=== PATIENT | male | born 1990 | race Two or more races ===

== ENCOUNTER 2021-09-22 10:55 | Inpatient (IN) | payer MEDICAID, OTHER ==
[~2021-09-22] VITALS: Ht 170.2 cm; Wt 63.5 kg
[2021-09-22] MEDS ORDERED: SODIUM CHLORIDE 0.9% 1,000 ML IVB ONE (11:15)
[2021-09-22] MEDS: SODIUM CHLORIDE 0.9% 1,000 ML IV ONE ×2 (11:30→13:19)
[2021-09-22 11:57] LABS: Basophils # (auto) 0 10 ^3/uL (0-0.2); Basophils % (auto) 0.1 % (0.0-2.0); Eosinophils # (auto) 0.1 10 ^3/uL (0-0.8); Eosinophils % (auto) 0.5 % (0.0-7.0); Hematocrit 48.9 % (41.0-53.0); Hemoglobin 16.2 g/dL (13.5-17.5); Lymphocytes # (auto) 0.4 10 ^3/uL (0.4-5.4); Lymphocytes % (auto) 3.2 % (10.0-50.0); Mean Corpuscular Hgb Conc. 33.1 g/dL (32.0-36.0); Mean Corpuscular Volume 93.7 fL (80.0-100.0); Monocytes # (auto) 1.2 10 ^3/uL (0-1.3); Monocytes % (auto) 9.4 % (0.0-12.0); Neutrophils # (auto) 10.8 10 ^3/uL (1.6-8.6); Neutrophils % (auto) 86.8 % (37.0-80.0); Nucleated Red Blood Cells % 0.3 %; Red Blood Cells 5.22 10^6/uL (4.5-5.90); Red Cell Distribution Width 14.3 % (11.8-14.3); White Blood Cell 12.4 10^3/uL (4.4-10.8)
[2021-09-22] MEDS ORDERED: ONDANSETRON HCL 4 MG/2 ML VIAL IV ONE ×2 (12:00→13:00)
[2021-09-22 12:03] LABS: Albumin 3.9 g/dL (3.4-5.0); BUN/Creatinine Ratio 8.4; Calcium 8.3 mg/dL (8.5-10.1); Potassium 4.3 mmol/L (3.5-5.1)
[2021-09-22 12:11] LABS: Bilirubin, Total 0.3 mg/dL (0.2-1.0); Total Protein 7.8 g/dL (6.4-8.2)
[2021-09-22 12:37] LABS: Lactic Acid w/Reflex 4.6 mmol/L (0.4-2.0)
[2021-09-22] MEDS ORDERED: DexAMETHasone SOD PHOS 4 MG/1ML SDV INJ IV ONE (13:00)
[2021-09-22] MEDS ORDERED: AZITHROMYCIN 500MG/ 250ML 250 ML IV ONE ×3 (13:00→21:06)
[2021-09-22] MEDS ORDERED: VANCOMYCIN 1GM/250ML 250 ML IV ONE (13:00)
[2021-09-22] MEDS ORDERED: NOREPINEPHRINE 8 MG/250ML KIT 250 ML IV SCH (13:15)
[2021-09-22] MEDS ORDERED: REMDESIVIR PER PHARMACY 0 ML IV SCH (13:30)
[2021-09-22] MEDS ORDERED: cefTRIAXone 1GM/50ML D5W 50 ML IV ONE (13:30)
[2021-09-22 13:31] LABS: CRP High Sensitivity 0.34 mg/dL (< 0.3)
[2021-09-22] MEDS ORDERED: SODIUM CHLORIDE 0.9% 500 ML IV ONE (13:45)
[2021-09-22 14:30] VITALS: BP 63/39
[2021-09-22] MEDS: AZITHROMYCIN 500MG/ 250ML 250 ML IV SCH ×2 (14:46→21:15)
[2021-09-22 14:52] LABS: INR 1.12 (0.9-1.15)
[2021-09-22] MEDS ORDERED: SODIUM CHLORIDE 0.9% 1,000 ML IV ONE (15:30)
[2021-09-22 15:32] LABS: Bilirubin, Direct 0.2 mg/dL (0-0.2)
[2021-09-22 15:34] LABS: Bilirubin, Total 0.3 mg/dL (0.2-1.0)
[2021-09-22] MEDS ORDERED: FUROSEMIDE 100 MG/10ML VIAL IV ONE (15:45)
[2021-09-22] MEDS ORDERED: SODIUM BICARBONATE 8.4 % INJ 50ML VIAL IV ONE (15:45)
[2021-09-22] MEDS ORDERED: PIPERACILLIN-TAZOB 2.25GM 50 ML IV ONE (16:00)
[2021-09-22] MEDS ORDERED: FOLIC ACID 1 MG in D5W 5% 50 ML INJ ONE (16:00)
[2021-09-22] MEDS ORDERED: PANTOPRAZOLE 40 MG/10 ML VIAL INJ IV ONE (16:00)
[2021-09-22] MEDS ORDERED: NITROGLYCERIN 0.4 MG SL TAB SL PRN (16:00)
[2021-09-22] MEDS ORDERED: MORPHINE SULFATE INJ 2 MG/ml SYRG IV PRN (16:00)
[2021-09-22] MEDS ORDERED: THIAMINE 100mg/ml INJ (200mg/2ml VIAL) IV ONE (16:00)
[2021-09-22 16:48] LABS: Urine Bacteria NONE SEEN /hpf (None Seen); Urine Blood 3+ /uL (Negative); Urine Budding Yeast MODERATE /hpf (None Seen); Urine Mucus FEW (None Seen); Urine Specific Gravity 1.025 (1.001-1.035); Urine WBC 381 /hpf (0 - 3)
[2021-09-22 16:57] LABS: Alcohol, Urine < 3.0 mg/dL (0-10); Amphetamine Screen, Urine NEGATIVE (NEGATIVE); Barbiturate Scree,Urine NEGATIVE (NEGATIVE); Benzodiazephine Screen, Urine NEGATIVE (NEGATIVE); Cannabinoid Screen, Urine POSITIVE (NEGATIVE); Cocaine Screen, Urine POSITIVE (NEGATIVE); Opiate Scree,Urine NEGATIVE (NEGATIVE); Phencyclidine Screen, Urine NEGATIVE (NEGATIVE)
[2021-09-22] MEDS: PHENYLEPHRINE IV 250 ML IV SCH (17:37)
[2021-09-22 17:50] LABS: Acetaminophen < 2.0 ug/mL (10-30); Salicylate 2.5 mg/dL (2.8-20.0)
[2021-09-22] MEDS ORDERED: LIDOCAINE 1% (LOCAL ANESTH.) PF 5ml SDV ID ONE (18:45)
[2021-09-22] MEDS: NOREPINEPHRINE 8 MG/250ML KIT 250 ML IV SCH (19:13)
[2021-09-22] MEDS: SODIUM BICARBONATE 50ML VIAL 150 ML in D5W 5% 1,000 ML IV SCH (19:16)
[2021-09-22] MEDS: ENOXAPARIN SOD 80 MG/0.8ML SYRINGE SC SCH (21:18)
[2021-09-22] MEDS: PIPERACILLIN-TAZOB 2.25GM 50 ML IV SCH (21:54)
[2021-09-22] MEDS: SODIUM CHLOR 0.9% PF (SALINE LOCK) 10ML VIAL/SYR IV SCH (21:54)
[2021-09-23] MEDS: PHENYLEPHRINE IV 250 ML IV SCH ×3 (00:35→18:32)
[2021-09-23] MEDS: SODIUM BICARBONATE 50ML VIAL 150 ML in D5W 5% 1,000 ML IV SCH ×2 (03:15→07:24)
[2021-09-23] MEDS: PIPERACILLIN-TAZOB 2.25GM 50 ML IV SCH ×4 (04:05→22:35)
[2021-09-23 06:13] LABS: INR 1.51 (0.9-1.15); Partial Thromboplastin Time 30.9 sec (23.6-33.0)
[2021-09-23 06:44] LABS: Bilirubin, Total 0.3 mg/dL (0.2-1.0); Total Protein 4.8 g/dL (6.4-8.2)
[2021-09-23 07:40] LABS: Potassium 4.3 mmol/L (3.5-5.1)
[2021-09-23 07:42] LABS: Albumin 2.5 g/dL (3.4-5.0); BUN/Creatinine Ratio 12.1; Calcium 6.3 mg/dL (8.5-10.1)
[2021-09-23] MEDS: SODIUM CHLOR 0.9% PF (SALINE LOCK) 10ML VIAL/SYR IV SCH ×2 (10:16→22:35)
[2021-09-23] MEDS: THIAMINE 100mg/ml INJ (200mg/2ml VIAL) IV SCH (10:16)
[2021-09-23] MEDS: PANTOPRAZOLE 40 MG/10 ML VIAL INJ IV SCH (10:16)
[2021-09-23] MEDS ORDERED: DOXYCYCLINE 100 MG TAB/CAP PO ONE (10:30)
[2021-09-23] MEDS: FOLIC ACID 1 MG in D5W 5% 50 ML INJ SCH (11:32)
[2021-09-23] MEDS: ALBUTEROL SULF 2.5 MG/0.5ML(0.5%) NEB SOLN NEB SCH ×2 (12:02→18:58)
[2021-09-23] MEDS: IPRATROPIUM BROM 0.5 MG/2.5ML INH SOL NEB SCH ×2 (12:02→18:58)
[2021-09-23] MEDS: SODIUM CHLORIDE 0.9% 1,000 ML IV SCH ×2 (12:19→18:31)
[2021-09-23] MEDS: BUMETANIDE 2.5mg/10ml (0.25 mg/ml) INJ IV SCH ×2 (12:44→18:31)
[2021-09-23 12:56] LABS: Creatinine, Urine 231 mg/dL (30.0-125.0); Protein, Urine 109.8 mg/dL (0.0-11.9); Sodium Urine 14 mmol/L (40-220)
[2021-09-23 13:46] LABS: Basophils # (auto) 0 10 ^3/uL (0-0.2); Eosinophils # (auto) 0 10 ^3/uL (0-0.8); Eosinophils % (auto) 0.4 % (0.0-7.0); Hematocrit 36.3 % (41.0-53.0); Hemoglobin 12.4 g/dL (13.5-17.5); Lymphocytes # (auto) 0.4 10 ^3/uL (0.4-5.4); Mean Corpuscular Hemoglobin 31.8 pg (28.0-32.0); Mean Corpuscular Hgb Conc. 34.2 g/dL (32.0-36.0); Mean Corpuscular Volume 92.9 fL (80.0-100.0); Monocytes # (auto) 0.4 10 ^3/uL (0-1.3); Monocytes % (auto) 4.1 % (0.0-12.0); Neutrophils # (auto) 9.8 10 ^3/uL (1.6-8.6); Neutrophils % (auto) 91.5 % (37.0-80.0); Red Blood Cells 3.91 10^6/uL (4.5-5.90); Red Cell Distribution Width 14.4 % (11.8-14.3); White Blood Cell 10.7 10^3/uL (4.4-10.8)
[2021-09-23 14:02] LABS: Lactic Acid w/Reflex 2.6 mmol/L (0.4-2.0)
[2021-09-23] MEDS: NOREPINEPHRINE 8 MG/250ML KIT 250 ML IV SCH (16:15)
[2021-09-23] MEDS: ENOXAPARIN SOD 80 MG/0.8ML SYRINGE SC SCH (21:05)
[2021-09-23] MEDS: DOXYCYCLINE 100 MG TAB/CAP PO SCH (22:34)
[2021-09-24] MEDS: ALBUTEROL SULF 2.5 MG/0.5ML(0.5%) NEB SOLN NEB SCH ×5 (00:29→23:40)
[2021-09-24] MEDS: IPRATROPIUM BROM 0.5 MG/2.5ML INH SOL NEB SCH ×5 (00:29→23:40)
[2021-09-24] MEDS: PHENYLEPHRINE IV 250 ML IV SCH ×3 (01:35→18:15)
[2021-09-24] MEDS: SODIUM CHLORIDE 0.9% 1,000 ML IV SCH ×4 (01:39→23:20)
[2021-09-24] MEDS: PIPERACILLIN-TAZOB 2.25GM 50 ML IV SCH ×4 (04:03→23:21)
[2021-09-24 04:27] LABS: Basophils # (auto) 0 10 ^3/uL (0-0.2); Basophils % (auto) 0.3 % (0.0-2.0); Eosinophils # (auto) 0 10 ^3/uL (0-0.8); Eosinophils % (auto) 0.1 % (0.0-7.0); Hematocrit 35.6 % (41.0-53.0); Hemoglobin 12.2 g/dL (13.5-17.5); Lymphocytes # (auto) 0.8 10 ^3/uL (0.4-5.4); Lymphocytes % (auto) 6.2 % (10.0-50.0); Mean Corpuscular Hemoglobin 31.3 pg (28.0-32.0); Mean Corpuscular Hgb Conc. 34.2 g/dL (32.0-36.0); Mean Corpuscular Volume 91.4 fL (80.0-100.0); Monocytes # (auto) 0.6 10 ^3/uL (0-1.3); Monocytes % (auto) 5.1 % (0.0-12.0); Neutrophils # (auto) 11.2 10 ^3/uL (1.6-8.6); Neutrophils % (auto) 88.3 % (37.0-80.0); Nucleated Red Blood Cells % 0.1 %; Red Blood Cells 3.89 10^6/uL (4.5-5.90); Red Cell Distribution Width 13.7 % (11.8-14.3); White Blood Cell 12.6 10^3/uL (4.4-10.8)
[2021-09-24 04:33] LABS: Albumin 2.6 g/dL (3.4-5.0); BUN/Creatinine Ratio 10.5; Calcium 6.3 mg/dL (8.5-10.1); Potassium 3.7 mmol/L (3.5-5.1)
[2021-09-24 04:34] LABS: INR 1.24 (0.9-1.15); Partial Thromboplastin Time 32.8 sec (23.6-33.0)
[2021-09-24 04:41] LABS: Bilirubin, Total 0.4 mg/dL (0.2-1.0); Phosphorus 3.7 mg/dL (2.5-4.90)
[2021-09-24] MEDS: BUMETANIDE 2.5mg/10ml (0.25 mg/ml) INJ IV SCH ×3 (06:08→18:10)
[2021-09-24] MEDS: DOPamine 1600MCG/ML D5W 250 ML IV SCH (10:00)
[2021-09-24] MEDS: FOLIC ACID 1 MG in D5W 5% 50 ML INJ SCH (10:12)
[2021-09-24] MEDS: DOXYCYCLINE 100 MG TAB/CAP PO SCH ×2 (10:13→23:20)
[2021-09-24] MEDS: PANTOPRAZOLE 40 MG/10 ML VIAL INJ IV SCH (10:13)
[2021-09-24] MEDS: THIAMINE 100mg/ml INJ (200mg/2ml VIAL) IV SCH (10:13)
[2021-09-24] MEDS: SODIUM CHLOR 0.9% PF (SALINE LOCK) 10ML VIAL/SYR IV SCH ×2 (10:13→22:00)
[2021-09-24] MEDS: NOREPINEPHRINE 8 MG/250ML KIT 250 ML IV SCH (16:15)
[2021-09-24] MEDS: ENOXAPARIN SOD 80 MG/0.8ML SYRINGE SC SCH (23:20)
[2021-09-25] MEDS: PIPERACILLIN-TAZOB 2.25GM 50 ML IV SCH ×4 (04:43→21:39)
[2021-09-25] MEDS: ALBUTEROL SULF 2.5 MG/0.5ML(0.5%) NEB SOLN NEB SCH ×3 (05:31→18:25)
[2021-09-25] MEDS: IPRATROPIUM BROM 0.5 MG/2.5ML INH SOL NEB SCH ×3 (06:00→18:25)
[2021-09-25] MEDS: BUMETANIDE 2.5mg/10ml (0.25 mg/ml) INJ IV SCH ×2 (06:08→18:06)
[2021-09-25] MEDS: SODIUM CHLORIDE 0.9% 1,000 ML IV SCH ×3 (06:47→13:34)
[2021-09-25 07:53] LABS: Basophils # (auto) 0 10 ^3/uL (0-0.2); Basophils % (auto) 0.1 % (0.0-2.0); Eosinophils # (auto) 0 10 ^3/uL (0-0.8); Eosinophils % (auto) 0.1 % (0.0-7.0); Hematocrit 39.1 % (41.0-53.0); Hemoglobin 13.5 g/dL (13.5-17.5); Lymphocytes # (auto) 0.6 10 ^3/uL (0.4-5.4); Lymphocytes % (auto) 5.2 % (10.0-50.0); Mean Corpuscular Hemoglobin 31.5 pg (28.0-32.0); Mean Corpuscular Hgb Conc. 34.6 g/dL (32.0-36.0); Mean Corpuscular Volume 91.1 fL (80.0-100.0); Monocytes # (auto) 0.8 10 ^3/uL (0-1.3); Monocytes % (auto) 6.7 % (0.0-12.0); Neutrophils # (auto) 10.9 10 ^3/uL (1.6-8.6); Neutrophils % (auto) 87.9 % (37.0-80.0); Red Blood Cells 4.29 10^6/uL (4.5-5.90); Red Cell Distribution Width 13.5 % (11.8-14.3); White Blood Cell 12.3 10^3/uL (4.4-10.8)
[2021-09-25 08:24] LABS: Potassium 3.3 mmol/L (3.5-5.1)
[2021-09-25 08:45] LABS: Albumin 2.6 g/dL (3.4-5.0); BUN/Creatinine Ratio 11.2; Bilirubin, Total 0.8 mg/dL (0.2-1.0); Calcium 6.7 mg/dL (8.5-10.1); Magnesium 2.5 mg/dL (1.6-2.6); Phosphorus 4.1 mg/dL (2.5-4.90); Total Protein 5.6 g/dL (6.4-8.2)
[2021-09-25] MEDS: DOPamine 1600MCG/ML D5W 250 ML IV SCH (09:15)
[2021-09-25] MEDS: SODIUM CHLOR 0.9% PF (SALINE LOCK) 10ML VIAL/SYR IV SCH ×2 (10:08→21:34)
[2021-09-25] MEDS: DOXYCYCLINE 100 MG TAB/CAP PO SCH (10:08)
[2021-09-25] MEDS: PANTOPRAZOLE 40 MG/10 ML VIAL INJ IV SCH (10:08)
[2021-09-25] MEDS: THIAMINE 100mg/ml INJ (200mg/2ml VIAL) IV SCH (10:08)
[2021-09-25] MEDS: FOLIC ACID 1 MG in D5W 5% 50 ML INJ SCH (10:39)
[2021-09-25] MEDS ORDERED: POTASSIUM CHL 20MEQ/100ML 100 ML IV ONE (11:15)
[2021-09-25] MEDS ORDERED: CARVEDILOL 12.5 MG TAB PO ONE (12:00)
[2021-09-25 12:06] LABS: Hepatitis A Ab IgM Negative; Hepatitis B Core IgM Negative; Hepatitis C Antibody Negative (Negative)
[2021-09-25 12:07] LABS: Hepatitis C Antibody Negative (Negative)
[2021-09-25] MEDS: ENOXAPARIN SOD 80 MG/0.8ML SYRINGE SC SCH (21:40)
[2021-09-25] MEDS: CARVEDILOL 12.5 MG TAB PO SCH (21:41)
[2021-09-26] MEDS: IPRATROPIUM BROM 0.5 MG/2.5ML INH SOL NEB SCH ×4 (00:22→17:55)
[2021-09-26] MEDS: ALBUTEROL SULF 2.5 MG/0.5ML(0.5%) NEB SOLN NEB SCH ×4 (00:22→17:54)
[2021-09-26] MEDS: SODIUM CHLORIDE 0.9% 1,000 ML IV SCH (03:39)
[2021-09-26] MEDS: PIPERACILLIN-TAZOB 2.25GM 50 ML IV SCH ×4 (03:40→21:43)
[2021-09-26] MEDS: DOPamine 1600MCG/ML D5W 250 ML IV SCH (04:00)
[2021-09-26 06:17] LABS: Basophils # (auto) 0.1 10 ^3/uL (0-0.2); Basophils % (auto) 0.6 % (0.0-2.0); Eosinophils # (auto) 0 10 ^3/uL (0-0.8); Eosinophils % (auto) 0.3 % (0.0-7.0); Hematocrit 38.8 % (41.0-53.0); Hemoglobin 13.7 g/dL (13.5-17.5); Lymphocytes # (auto) 0.5 10 ^3/uL (0.4-5.4); Lymphocytes % (auto) 5.1 % (10.0-50.0); Mean Corpuscular Hemoglobin 31.9 pg (28.0-32.0); Mean Corpuscular Hgb Conc. 35.3 g/dL (32.0-36.0); Mean Corpuscular Volume 90.4 fL (80.0-100.0); Monocytes # (auto) 0.9 10 ^3/uL (0-1.3); Monocytes % (auto) 8.9 % (0.0-12.0); Neutrophils # (auto) 8.6 10 ^3/uL (1.6-8.6); Neutrophils % (auto) 85.1 % (37.0-80.0); Nucleated Red Blood Cells % 0.1 %; Red Cell Distribution Width 13.4 % (11.8-14.3); White Blood Cell 10.1 10^3/uL (4.4-10.8)
[2021-09-26 06:39] LABS: Albumin 2.2 g/dL (3.4-5.0); Bilirubin, Total 1.3 mg/dL (0.2-1.0); Calcium 6.7 mg/dL (8.5-10.1); Total Protein 5.1 g/dL (6.4-8.2)
[2021-09-26] MEDS: BUMETANIDE 2.5mg/10ml (0.25 mg/ml) INJ IV SCH ×2 (07:03→18:06)
[2021-09-26] MEDS ORDERED: POTASSIUM EFFERVESENT TAB 25 MEQ PO ONE (08:30)
[2021-09-26] MEDS: FOLIC ACID 1 MG in D5W 5% 50 ML INJ SCH (10:10)
[2021-09-26] MEDS: PANTOPRAZOLE 40 MG/10 ML VIAL INJ IV SCH (10:10)
[2021-09-26] MEDS: CARVEDILOL 12.5 MG TAB PO SCH ×2 (10:10→21:44)
[2021-09-26] MEDS: THIAMINE 100mg/ml INJ (200mg/2ml VIAL) IV SCH (10:10)
[2021-09-26] MEDS: SODIUM CHLOR 0.9% PF (SALINE LOCK) 10ML VIAL/SYR IV SCH ×2 (10:10→21:44)
[2021-09-26] MEDS ORDERED: POTASSIUM CHL 20MEQ/100ML 100 ML IV SCH (11:45)
[2021-09-26] MEDS ORDERED: ENOXAPARIN SOD 40 MG/0.4 ML SYRINGE SC SCH (21:00)
[2021-09-27] MEDS: ALBUTEROL SULF 2.5 MG/0.5ML(0.5%) NEB SOLN NEB SCH ×3 (00:11→11:45)
[2021-09-27] MEDS: IPRATROPIUM BROM 0.5 MG/2.5ML INH SOL NEB SCH ×3 (00:11→11:45)
[2021-09-27] MEDS: PIPERACILLIN-TAZOB 2.25GM 50 ML IV SCH ×3 (04:49→23:49)
[2021-09-27 04:58] LABS: Basophils # (auto) 0 10 ^3/uL (0-0.2); Basophils % (auto) 0.3 % (0.0-2.0); Eosinophils # (auto) 0.2 10 ^3/uL (0-0.8); Eosinophils % (auto) 1.9 % (0.0-7.0); Hematocrit 43.6 % (41.0-53.0); Hemoglobin 15.4 g/dL (13.5-17.5); Lymphocytes # (auto) 0.6 10 ^3/uL (0.4-5.4); Lymphocytes % (auto) 6.5 % (10.0-50.0); Mean Corpuscular Hemoglobin 31.6 pg (28.0-32.0); Mean Corpuscular Hgb Conc. 35.4 g/dL (32.0-36.0); Mean Corpuscular Volume 89.2 fL (80.0-100.0); Monocytes # (auto) 1.1 10 ^3/uL (0-1.3); Monocytes % (auto) 11.8 % (0.0-12.0); Neutrophils # (auto) 7.8 10 ^3/uL (1.6-8.6); Neutrophils % (auto) 79.5 % (37.0-80.0); Red Blood Cells 4.88 10^6/uL (4.5-5.90); Red Cell Distribution Width 13.6 % (11.8-14.3); White Blood Cell 9.8 10^3/uL (4.4-10.8)
[2021-09-27 05:17] LABS: Albumin 2.3 g/dL (3.4-5.0); Potassium 3.5 mmol/L (3.5-5.1)
[2021-09-27 05:19] LABS: BUN/Creatinine Ratio 13.2
[2021-09-27 05:21] LABS: Bilirubin, Total 0.8 mg/dL (0.2-1.0); Total Protein 5.6 g/dL (6.4-8.2)
[2021-09-27] MEDS: BUMETANIDE 2.5mg/10ml (0.25 mg/ml) INJ IV SCH (08:00)
[2021-09-27] MEDS: THIAMINE 100mg/ml INJ (200mg/2ml VIAL) IV SCH (11:03)
[2021-09-27] MEDS: FOLIC ACID 1 MG in D5W 5% 50 ML INJ SCH (11:03)
[2021-09-27] MEDS: SODIUM CHLOR 0.9% PF (SALINE LOCK) 10ML VIAL/SYR IV SCH ×2 (11:03→23:50)
[2021-09-27] MEDS: PANTOPRAZOLE 40 MG/10 ML VIAL INJ IV SCH (11:03)
[2021-09-27] MEDS: CARVEDILOL 12.5 MG TAB PO SCH ×2 (11:04→23:20)
[2021-09-27] MEDS ORDERED: ALBUMIN 25% 100 ML IV ONE (11:15)
[2021-09-27] MEDS ORDERED: POTASSIUM EFFERVESENT TAB 25 MEQ PO ONE (11:15)
[2021-09-27] MEDS ORDERED: PIPERACILLIN-TAZOB 2.25GM 50 ML IV SCH (18:00)
[2021-09-27 19:02] VITALS: BP 134/84
[2021-09-27 22:30] VITALS: BP 149/106
[2021-09-27] MEDS ORDERED: NITROGLYCERIN 0.4 MG SL TAB SL PRN (23:00)
[2021-09-27] MEDS ORDERED: MORPHINE SULFATE INJ 2 MG/ml SYRG IV PRN (23:00)
[2021-09-28] MEDS: IPRATROPIUM BROM 0.5 MG/2.5ML INH SOL NEB SCH ×4 (00:07→20:09)
[2021-09-28] MEDS: ALBUTEROL SULF 2.5 MG/0.5ML(0.5%) NEB SOLN NEB SCH ×4 (00:07→20:09)
[2021-09-28 05:00] VITALS: BP 129/79
[2021-09-28] MEDS: PIPERACILLIN-TAZOB 2.25GM 50 ML IV SCH ×2 (05:36→14:14)
[2021-09-28 05:54] LABS: Calcium 8.5 mg/dL (8.5-10.1); Potassium 3.2 mmol/L (3.5-5.1)
[2021-09-28 05:55] LABS: Basophils # (auto) 0 10 ^3/uL (0-0.2); Basophils % (auto) 0.1 % (0.0-2.0); Eosinophils # (auto) 0.2 10 ^3/uL (0-0.8); Eosinophils % (auto) 2.6 % (0.0-7.0); Hematocrit 38.2 % (41.0-53.0); Hemoglobin 13.2 g/dL (13.5-17.5); Lymphocytes # (auto) 0.8 10 ^3/uL (0.4-5.4); Lymphocytes % (auto) 8.4 % (10.0-50.0); Mean Corpuscular Hemoglobin 31.3 pg (28.0-32.0); Mean Corpuscular Hgb Conc. 34.6 g/dL (32.0-36.0); Mean Corpuscular Volume 90.5 fL (80.0-100.0); Monocytes # (auto) 1.2 10 ^3/uL (0-1.3); Monocytes % (auto) 12.6 % (0.0-12.0); Neutrophils % (auto) 76.3 % (37.0-80.0); Red Blood Cells 4.22 10^6/uL (4.5-5.90); Red Cell Distribution Width 13.4 % (11.8-14.3); White Blood Cell 9.2 10^3/uL (4.4-10.8)
[2021-09-28 06:00] LABS: BUN/Creatinine Ratio 14.4
[2021-09-28 09:00] VITALS: BP 137/91
[2021-09-28] MEDS: CARVEDILOL 12.5 MG TAB PO SCH ×2 (09:21→22:20)
[2021-09-28] MEDS: FOLIC ACID 1 MG TAB PO SCH (09:21)
[2021-09-28] MEDS: PANTOPRAZOLE 40 MG TAB PO SCH (09:21)
[2021-09-28] MEDS: SODIUM CHLOR 0.9% PF (SALINE LOCK) 10ML VIAL/SYR IV SCH ×2 (09:26→22:19)
[2021-09-28] MEDS: POTASSIUM CHL 20MEQ/100ML 100 ML IV SCH ×2 (09:27→11:18)
[2021-09-28] MEDS ORDERED: THIAMINE 100mg/ml INJ (200mg/2ml VIAL) IV SCH (10:00)
[2021-09-28] MEDS ORDERED: PANTOPRAZOLE 40 MG TAB PO SCH (10:00)
[2021-09-28] MEDS ORDERED: FOLIC ACID 1 MG TAB PO SCH (10:00)
[2021-09-28 13:00] VITALS: BP 147/99
[2021-09-28 17:24] VITALS: BP 140/98
[2021-09-28 20:00] VITALS: BP 137/86
[2021-09-28 22:00] VITALS: BP 137/86
[2021-09-29] MEDS: IPRATROPIUM BROM 0.5 MG/2.5ML INH SOL NEB SCH ×3 (00:07→11:55)
[2021-09-29] MEDS: ALBUTEROL SULF 2.5 MG/0.5ML(0.5%) NEB SOLN NEB SCH ×3 (00:07→11:55)
[2021-09-29 05:00] VITALS: BP 139/100
[2021-09-29 07:13] LABS: Basophils # (auto) 0 10 ^3/uL (0-0.2); Basophils % (auto) 0.3 % (0.0-2.0); Eosinophils # (auto) 0.3 10 ^3/uL (0-0.8); Eosinophils % (auto) 3.4 % (0.0-7.0); Hematocrit 35.8 % (41.0-53.0); Hemoglobin 12.5 g/dL (13.5-17.5); Lymphocytes % (auto) 10.8 % (10.0-50.0); Mean Corpuscular Hemoglobin 31.2 pg (28.0-32.0); Mean Corpuscular Hgb Conc. 34.8 g/dL (32.0-36.0); Mean Corpuscular Volume 89.6 fL (80.0-100.0); Monocytes # (auto) 1.4 10 ^3/uL (0-1.3); Monocytes % (auto) 15.2 % (0.0-12.0); Neutrophils # (auto) 6.5 10 ^3/uL (1.6-8.6); Neutrophils % (auto) 70.3 % (37.0-80.0); Red Cell Distribution Width 13.2 % (11.8-14.3); White Blood Cell 9.2 10^3/uL (4.4-10.8)
[2021-09-29 07:39] LABS: BUN/Creatinine Ratio 14.3; Calcium 8.3 mg/dL (8.5-10.1); Potassium 3.2 mmol/L (3.5-5.1)
[2021-09-29 09:00] VITALS: BP 138/98
[2021-09-29] MEDS: FOLIC ACID 1 MG TAB PO SCH (09:38)
[2021-09-29] MEDS: THIAMINE HCL 100 MG TAB PO SCH (09:38)
[2021-09-29] MEDS: PANTOPRAZOLE 40 MG TAB PO SCH (09:38)
[2021-09-29] MEDS: CARVEDILOL 12.5 MG TAB PO SCH ×2 (09:39→22:05)
[2021-09-29] MEDS: SODIUM CHLOR 0.9% PF (SALINE LOCK) 10ML VIAL/SYR IV SCH ×2 (09:41→22:06)
[2021-09-29] MEDS ORDERED: levoFLOXacin 250 MG TAB PO SCH (10:00)
[2021-09-29] MEDS ORDERED: POTASSIUM CHL 20 Meq TABLET PO ONE (12:15)
[2021-09-29 13:00] VITALS: BP 142/95
[2021-09-29] MEDS ORDERED: BUMETANIDE 2.5mg/10ml (0.25 mg/ml) INJ IV ONE (14:45)
[2021-09-29 17:00] VITALS: BP 152/100
[2021-09-29 20:55] VITALS: BP 139/96
[2021-09-30] MEDS ORDERED: ALBUTEROL SULF 2.5 MG/0.5ML(0.5%) NEB SOLN NEB PRN
[2021-09-30] MEDS ORDERED: IPRATROPIUM BROM 0.5 MG/2.5ML INH SOL NEB PRN
[2021-09-30 05:07] VITALS: BP 143/98
[2021-09-30 05:47] LABS: BUN/Creatinine Ratio 14.6; Calcium 8.1 mg/dL (8.5-10.1); Potassium 3.5 mmol/L (3.5-5.1)
[2021-09-30 09:02] VITALS: BP 146/96
[2021-09-30] MEDS: PANTOPRAZOLE 40 MG TAB PO SCH (09:18)
[2021-09-30] MEDS: CARVEDILOL 12.5 MG TAB PO SCH ×2 (09:19→21:35)
[2021-09-30] MEDS: FOLIC ACID 1 MG TAB PO SCH (09:19)
[2021-09-30] MEDS: THIAMINE HCL 100 MG TAB PO SCH (09:20)
[2021-09-30] MEDS: SODIUM CHLOR 0.9% PF (SALINE LOCK) 10ML VIAL/SYR IV SCH ×2 (09:20→22:00)
[2021-09-30] MEDS: levoFLOXacin 250 MG TAB PO SCH (11:46)
[2021-09-30 13:00] VITALS: BP 140/102
[2021-09-30 17:00] VITALS: BP 155/104
[2021-09-30] MEDS ORDERED: hydrALAZINE HCL 20 MG/ML VL IV PRN (17:45)
[2021-09-30] MEDS: LABETALOL HCL 5 MG/ML 4ML SYRINGE IV PRN (18:12)
[2021-09-30 22:00] VITALS: BP 149/105
[2021-10-01] VITALS (7 sets, daily range): BP systolic 135–150; BP diastolic 94–105
[2021-10-01] MEDS: LABETALOL HCL 5 MG/ML 4ML SYRINGE IV PRN (02:50)
[2021-10-01 07:16] LABS: BUN/Creatinine Ratio 13.4; Calcium 8.5 mg/dL (8.5-10.1); Potassium 3.9 mmol/L (3.5-5.1)
[2021-10-01] MEDS: THIAMINE HCL 100 MG TAB PO SCH (08:36)
[2021-10-01] MEDS: PANTOPRAZOLE 40 MG TAB PO SCH (08:36)
[2021-10-01] MEDS: FOLIC ACID 1 MG TAB PO SCH (08:36)
[2021-10-01] MEDS: levoFLOXacin 250 MG TAB PO SCH (08:36)
[2021-10-01] MEDS: CARVEDILOL 12.5 MG TAB PO SCH ×2 (08:37→21:42)
[2021-10-01] MEDS: SODIUM CHLOR 0.9% PF (SALINE LOCK) 10ML VIAL/SYR IV SCH ×2 (08:37→21:41)
[2021-10-02] VITALS (8 sets, daily range): BP systolic 89–134; BP diastolic 53–96
[2021-10-02 08:18] LABS: Basophils # (auto) 0.1 10 ^3/uL (0-0.2); Basophils % (auto) 0.7 % (0.0-2.0); Eosinophils # (auto) 0.2 10 ^3/uL (0-0.8); Eosinophils % (auto) 1.9 % (0.0-7.0); Hematocrit 30.5 % (41.0-53.0); Lymphocytes # (auto) 0.9 10 ^3/uL (0.4-5.4); Lymphocytes % (auto) 10.3 % (10.0-50.0); Mean Corpuscular Hemoglobin 31.6 pg (28.0-32.0); Mean Corpuscular Hgb Conc. 34.8 g/dL (32.0-36.0); Mean Corpuscular Volume 90.8 fL (80.0-100.0); Monocytes # (auto) 0.7 10 ^3/uL (0-1.3); Neutrophils # (auto) 7.3 10 ^3/uL (1.6-8.6); Neutrophils % (auto) 79.1 % (37.0-80.0); Nucleated Red Blood Cells % 0.1 %; Red Blood Cells 3.36 10^6/uL (4.5-5.90); Red Cell Distribution Width 13.2 % (11.8-14.3); White Blood Cell 9.2 10^3/uL (4.4-10.8)
[2021-10-02 08:20] LABS: Hemoglobin 10.6 g/dL (13.5-17.5)
[2021-10-02 08:22] LABS: INR 1.17 (0.9-1.15); Partial Thromboplastin Time 26.2 sec (23.6-33.0)
[2021-10-02 08:27] LABS: Calcium 8.8 mg/dL (8.5-10.1)
[2021-10-02] MEDS: CARVEDILOL 12.5 MG TAB PO SCH (10:00)
[2021-10-02] MEDS: FOLIC ACID 1 MG TAB PO SCH (10:00)
[2021-10-02] MEDS ORDERED: SODIUM CHLORIDE 0.9% 500 ML IV ONE (10:30)
[2021-10-02] MEDS: THIAMINE HCL 100 MG TAB PO SCH (11:09)
[2021-10-02] MEDS: levoFLOXacin 250 MG TAB PO SCH (11:09)
[2021-10-02] MEDS: PANTOPRAZOLE 40 MG TAB PO SCH (11:09)
[2021-10-02] MEDS: SODIUM CHLOR 0.9% PF (SALINE LOCK) 10ML VIAL/SYR IV SCH ×2 (11:10→22:24)
[2021-10-02 17:07] LABS: Basophils # (auto) 0 10 ^3/uL (0-0.2); Basophils % (auto) 0.6 % (0.0-2.0); Eosinophils # (auto) 0.2 10 ^3/uL (0-0.8); Eosinophils % (auto) 2.1 % (0.0-7.0); Hematocrit 24.9 % (41.0-53.0); Hemoglobin 8.8 g/dL (13.5-17.5); Lymphocytes # (auto) 1.3 10 ^3/uL (0.4-5.4); Mean Corpuscular Hgb Conc. 35.2 g/dL (32.0-36.0); Monocytes # (auto) 0.7 10 ^3/uL (0-1.3); Monocytes % (auto) 9.5 % (0.0-12.0); Neutrophils % (auto) 69.8 % (37.0-80.0); Nucleated Red Blood Cells % 0.1 %; Red Blood Cells 2.74 10^6/uL (4.5-5.90); Red Cell Distribution Width 13.4 % (11.8-14.3); White Blood Cell 7.2 10^3/uL (4.4-10.8)
[2021-10-03 04:56] VITALS: BP 123/76
[2021-10-03 06:48] LABS: Hemoglobin 7.8 g/dL (13.5-17.5); Mean Corpuscular Volume 89.9 fL (80.0-100.0); White Blood Cell 6.6 10^3/uL (4.4-10.8)
[2021-10-03 06:49] LABS: Hematocrit 21.8 % (41.0-53.0); Mean Corpuscular Hemoglobin 32.2 pg (28.0-32.0); Mean Corpuscular Hgb Conc. 35.9 g/dL (32.0-36.0); Red Blood Cells 2.42 10^6/uL (4.5-5.90)
[2021-10-03 07:03] LABS: Potassium 3.9 mmol/L (3.5-5.1)
[2021-10-03 07:25] LABS: Basophils % (manual) 0 (0.0-2.0); Blast Cells 0; Metamyelocytes % 0; Myelocytes % 0; Promyelocytes % 0; Reactive Lymphocytes 0
[2021-10-03 07:28] LABS: Band Neutrophils % (manual) 12; Eosinophils % (manual) 1 (0-7); Lymphocytes % (manual) 17 (10.0-50.0); Monocytes % (manual) 8 (0-12)
[2021-10-03] MEDS: THIAMINE HCL 100 MG TAB PO SCH (08:57)
[2021-10-03] MEDS: FOLIC ACID 1 MG TAB PO SCH (08:57)
[2021-10-03] MEDS: levoFLOXacin 250 MG TAB PO SCH (08:57)
[2021-10-03] MEDS: PANTOPRAZOLE 40 MG TAB PO SCH (08:57)
[2021-10-03] MEDS: SODIUM CHLOR 0.9% PF (SALINE LOCK) 10ML VIAL/SYR IV SCH ×2 (08:58→22:25)
[2021-10-03] MEDS ORDERED: FERROUS SULFATE 325mg EC TAB PO ONE (12:45)
[2021-10-03 17:00] VITALS: BP 117/80
[2021-10-03] MEDS: FERROUS SULFATE 325mg EC TAB PO SCH (17:25)
[2021-10-03 22:00] VITALS: BP 132/90
[2021-10-04 05:00] VITALS: BP 115/79
[2021-10-04 06:19] LABS: Basophils # (auto) 0 10 ^3/uL (0-0.2); Basophils % (auto) 0.8 % (0.0-2.0); Eosinophils # (auto) 0.2 10 ^3/uL (0-0.8); Hemoglobin 7.7 g/dL (13.5-17.5); Monocytes # (auto) 0.6 10 ^3/uL (0-1.3); Red Cell Distribution Width 13.1 % (11.8-14.3)
[2021-10-04 06:21] LABS: Eosinophils % (auto) 3.3 % (0.0-7.0); Hematocrit 21.4 % (41.0-53.0); Lymphocytes # (auto) 1.4 10 ^3/uL (0.4-5.4); Lymphocytes % (auto) 25.3 % (10.0-50.0); Mean Corpuscular Hemoglobin 31.9 pg (28.0-32.0); Mean Corpuscular Hgb Conc. 35.7 g/dL (32.0-36.0); Mean Corpuscular Volume 89.3 fL (80.0-100.0); Monocytes % (auto) 10.6 % (0.0-12.0); Neutrophils # (auto) 3.3 10 ^3/uL (1.6-8.6); White Blood Cell 5.4 10^3/uL (4.4-10.8)
[2021-10-04 06:34] LABS: BUN/Creatinine Ratio 7.8; Calcium 8.4 mg/dL (8.5-10.1); Potassium 3.7 mmol/L (3.5-5.1)
[2021-10-04] MEDS: FERROUS SULFATE 325mg EC TAB PO SCH (08:29)
[2021-10-04] MEDS: THIAMINE HCL 100 MG TAB PO SCH (08:30)
[2021-10-04] MEDS: levoFLOXacin 250 MG TAB PO SCH (08:30)
[2021-10-04] MEDS: PANTOPRAZOLE 40 MG TAB PO SCH (08:30)
[2021-10-04] MEDS: SODIUM CHLOR 0.9% PF (SALINE LOCK) 10ML VIAL/SYR IV SCH (08:30)
[2021-10-04] MEDS: FOLIC ACID 1 MG TAB PO SCH (08:30)
[2021-10-04 09:00] VITALS: BP 112/67
[2021-10-04 13:00] VITALS: BP 119/85
[2021-10-04] MEDS ORDERED: FER325T PO (13:08)
[2021-10-04 13:45] VITALS: BP 97/63
== END 2021-10-04 14:39 | disposition home or self-care (01) | DRG 720 ==
LOC: ER 10:55 → TELE 15:57 → TELE-WESTW 09-27 22:15
PROVIDERS: ADMIT Internal Medicine; ATTEND Internal Medicine
PROC: 02HV33Z Insertion of Infusion Device into Superior Vena Cava, Percutaneous Approach (ICD-10-PCS; principal; 2021-09-22)
PROC: B548ZZA Ultrasonography of Superior Vena Cava, Guidance (ICD-10-PCS; 2021-09-22)
DX: A41.9 Sepsis, unspecified organism (principal); J96.01 Acute respiratory failure with hypoxia; K72.00 Acute and subacute hepatic failure without coma; J69.0 Pneumonitis due to inhalation of food and vomit; N17.0 Acute kidney failure with tubular necrosis; D69.6 Thrombocytopenia, unspecified; E88.09 Other disorders of plasma-protein metabolism, not elsewhere classified; R65.21 Severe sepsis with septic shock; I50.21 Acute systolic (congestive) heart failure; F10.10 Alcohol abuse, uncomplicated; F19.129 Other psychoactive substance abuse with intoxication, unspecified; F14.10 Cocaine abuse, uncomplicated; D64.9 Anemia, unspecified; E87.6 Hypokalemia; J45.909 Unspecified asthma, uncomplicated; N18.9 Chronic kidney disease, unspecified; Z20.822 Contact with and (suspected) exposure to COVID-19; R31.9 Hematuria, unspecified; R79.89 Other specified abnormal findings of blood chemistry; Z71.51 Drug abuse counseling and surveillance of drug abuser; I21.4 Non-ST elevation (NSTEMI) myocardial infarction
CPT/HCPCS: 36415; 36569; 36600; 70450; 71045; 71250; 74176; 76700; 76775; 80048; 80053; 80074; 80307; 80320; 80329; 81001; 82140; 82247; 82248; 82306; 82550; 82570; 82728; 82805; 82962; 83520; 83605; 83615; 83735; 83880; 83930; 83935; 83970; 84100; 84156; 84300; 84439; 84443; 84484; 85007; 85025; 85027; 85379; 85610; 85730; 86141; 86160; 86225; 86256; 86703; 86803; 86850; 86900; 86901; 87040; 87340; 93005; 93306; 94640; 96361; 96365; 96375; 99291; C9113; G0378; J0696; J1100; J2405; J2543; J3480; J3490; J7060; P9047